=== PATIENT | male | born 1940 | race African-American/Black ===

== ENCOUNTER 2019-12-17 11:49 | Inpatient (IN) | payer MEDICARE ==
[~2019-12-17] VITALS: Ht 172.7 cm; Wt 76.7 kg
[2019-12-17] MEDS ORDERED: SODIUM CHLORIDE 0.9% 1,000 ML IV ONE ×2 (12:01→13:30)
[2019-12-17 12:26] LABS: HEMATOCRIT. 37.1 % (42.0-52.0); HEMOGLOBIN. 12.7 g/dL (14.0-18.0); MEAN CORPUSCULAR HEMOGLOBIN 31.4 pg (28.0-32.0); MEAN CORPUSCULAR VOLUME 91.9 fL (80.0-94.0); MEAN PLATELET VOLUME 9.6 fl (7.4-10.4); PLATELET 192 x1000/uL (130-400); RED BLOOD CELL COUNT 4.04 mill/uL (4.7-6.1); RED CELL DISTRIBUTION WIDTH 13.5 % (11.6-14.6)
[2019-12-17 12:31] LABS: CHLORIDE 99 mEq/L (98-107)
[2019-12-17 12:54] LABS: D-DIMER 6.31 mg/L FEU (<0.50); INR 1.1; PLATELET ESTIMATE NORMAL; PROTHROMBIN TIME 11.8 sec (9.6-11.0)
[2019-12-17] MEDS ORDERED: DOCUSATE SODIUM 100MG CAPSULE PO PRN (14:30)
[2019-12-17] MEDS ORDERED: ONDANSETRON HCL 4MG/2ML INJ IV PRN (14:30)
[2019-12-17] MEDS ORDERED: MAGNESIUM/ALUMINUM HYDROXIDE/SIMETHICONE 30ML UDC PO PRN (14:30)
[2019-12-17] MEDS ORDERED: GUAIFENESIN 200MG/10ML SUGAR FREE UDC PO PRN (14:30)
[2019-12-17] MEDS ORDERED: CLONIDINE 0.1MG TABLET PO PRN (14:30)
[2019-12-17] MEDS ORDERED: CEFTRIAXONE 1 G PREMIX 50 ML IV SCH (15:00)
[2019-12-17] MEDS: SODIUM CHLORIDE 0.9% 1,000 ML IV SCH ×2 (15:00→22:17)
[2019-12-17] MEDS ORDERED: DEXTROSE 50% WATER 50ML SYRINGE IV PRN (15:15)
[2019-12-17] MEDS: BLOOD SUGAR DIAGNOSTIC STRIP TEST SCH ×2 (20:00→21:00)
[2019-12-17] MEDS: INSULIN LISPRO (HIGH DOSE) 100 UNITS/ML SUBCUT SCH ×2 (20:35→21:00)
[2019-12-17] MEDS: HYDROCODONE/ACETAMINOPHEN 5/325MG TABLET PO PRN (20:38)
[2019-12-17 21:22] VITALS: BP 94/41
[2019-12-18] VITALS (12 sets, daily range): BP systolic 86–140; BP diastolic 50–75
[2019-12-18] MEDS: HYDROCODONE/ACETAMINOPHEN 5/325MG TABLET PO PRN (03:19)
[2019-12-18 06:15] LABS: HEMOGLOBIN. 13.2 g/dL (14.0-18.0); MEAN CORPUSCULAR HEMOGLOBIN 31.7 pg (28.0-32.0); MEAN CORPUSCULAR VOLUME 91.4 fL (80.0-94.0); MEAN PLATELET VOLUME 9.7 fl (7.4-10.4); PLATELET 168 x1000/uL (130-400); RED BLOOD CELL COUNT 4.16 mill/uL (4.7-6.1); RED CELL DISTRIBUTION WIDTH 13.5 % (11.6-14.6)
[2019-12-18 06:44] LABS: CHLORIDE 103 mEq/L (98-107)
[2019-12-18] MEDS: BLOOD SUGAR DIAGNOSTIC STRIP TEST SCH ×4 (07:41→21:32)
[2019-12-18] MEDS: INSULIN LISPRO (HIGH DOSE) 100 UNITS/ML SUBCUT SCH ×4 (07:42→21:37)
[2019-12-18] MEDS ORDERED: ENOXAPARIN 40MG/0.4ML SYR SUBCUT SCH (09:00)
[2019-12-18] MEDS: SODIUM CHLORIDE 0.9% 1,000 ML IV SCH (09:24)
[2019-12-18] MEDS ORDERED: POTASSIUM CHLORIDE INJ 40 MEQ in DEXT 5% WATER 250 ML IV SCH (10:00)
[2019-12-18] MEDS: MIDODRINE HCL 2.5MG TABLET PO SCH ×3 (13:00→17:09)
[2019-12-18 13:25] LABS: PLATELET ESTIMATE NORMAL
[2019-12-18 13:43] LABS: PHOSPHORUS 4.1 mg/dL (2.5-4.9)
[2019-12-18] MEDS ORDERED: CEFTRIAXONE 1,000 MG in DEXTROSE 5% WATER 50 ML IV SCH (14:00)
[2019-12-18] MEDS ORDERED: CEFTRIAXONE 1 G PREMIX 50 ML IV SCH ×2 (14:00→17:00)
[2019-12-19] VITALS: BP 97/46
[2019-12-19 00:56] LABS: BG CARBOXYHEMOGLOBIN 0.2 % (0.5-1.5); BG DEOXYHEMOGLOBIN 2.3 % (0.0-5.0); BG FRACTION INSPIRED OXYGEN 40; BG HCO3 ACT 5.9 mmol/L (22.0-26.0); BG METHEMOGLOBIN 0.3 % (0.0-1.5); BG OXYGEN SATURATION 97.7 % (92.0-98.5); BG OXYHEMOGLOBIN 97.2 % (94.0-97.0); BG PCO2 29.9 mmHg (35.0-45.0); BG PH 6.913 (7.350-7.450); BG SAMPLE SITE LEFT FEMORAL; BG TOTAL HEMOGLOBIN 13.2 g/dL (12.0-18.0); BG VENT MODE NASAL CANNULA
[2019-12-19] MEDS ORDERED: SODIUM BICARBONATE 8.4% 1 MEQ/ML 50ML SYR IV ONE (01:08)
[2019-12-19] MEDS ORDERED: EPINEPHRINE 0.1MG/ML (1:10,000) 10ML SYR ONE (02:10)
[2019-12-19] MEDS ORDERED: SODIUM BICARBONATE 8.4% MEQ/ML 50ML VIAL IV ONE (02:10)
[2019-12-19] MEDS ORDERED: ENOXAPARIN 30MG/0.3ML SYR SUBCUT SCH (09:00)
== END 2019-12-19 03:00 | disposition expired | DRG 682 ==
LOC: ER 12:11 → EDBEDREQTM 13:29 → EDBEDREQ 13:29 → EDBEDREQSVC 13:29 → 5EST 14:21 → EDBEDREQ 14:24 → EDBEDREQSVC 14:24 → EDBEDREQTM 14:24 → ENRESERV 20:17 → 5EST 12-18 02:00
PROVIDERS: ADMIT Hospitalist; ATTEND Hospitalist
PROC: 0BH17EZ Insertion of Endotracheal Airway into Trachea, Via Natural or Artificial Opening (ICD-10-PCS; principal; 2019-12-19)
PROC: 5A1935Z Respiratory Ventilation, Less than 24 Consecutive Hours (ICD-10-PCS; 2019-12-19)
PROC: 5A12012 Performance of Cardiac Output, Single, Manual (ICD-10-PCS; 2019-12-19)
DX: N17.0 Acute kidney failure with tubular necrosis (principal); E43 Unspecified severe protein-calorie malnutrition; C22.9 Malignant neoplasm of liver, not specified as primary or secondary; E87.1 Hypo-osmolality and hyponatremia; E87.2 Acidosis; I95.9 Hypotension, unspecified; D64.9 Anemia, unspecified; D72.825 Bandemia; E11.649 Type 2 diabetes mellitus with hypoglycemia without coma; M54.9 Dorsalgia, unspecified; M54.5 Low back pain; E87.6 Hypokalemia; E86.9 Volume depletion, unspecified; R74.0 Nonspecific elevation of levels of transaminase and lactic acid dehydrogenase [LDH]; I10 Essential (primary) hypertension; I46.9 Cardiac arrest, cause unspecified; Z74.01 Bed confinement status; Z85.05 Personal history of malignant neoplasm of liver; Z68.25 Body mass index [BMI] 25.0-25.9, adult
CPT/HCPCS: 36415; 36600; 71045; 80053; 82375; 82550; 82805; 82962; 83036; 83605; 83735; 83880; 84100; 84443; 84484; 85025; 85379; 93005; 93970; 97162; 99285; J0696; J1650; J1815; J2405; J3480; J3490; J7030; J7060